=== PATIENT | male | born 1990 | race Caucasian/White ===

== ENCOUNTER 2024-10-14 11:15 | Emergency (ER) | payer BC, SELFPAY ==
--- NOTE | ~2024-10-14 | XR_ITS ---
EXAMINATION: XR CHEST 2 VIEWS HISTORY: cough, fever COMPARISON: There are no prior studies for comparison. FINDINGS: PA and lateral views of the chest are submitted. There are low lung volumes. There is linear subsegmental atelectasis at both lung bases. There is no pleural effusion, pneumothorax, or pulmonary vascular congestion. The heart is normal in size. There is dextroscoliosis of the lower thoracic and upper lumbar spine. XR/XR chest 2V IMPRESSION: Low lung volumes. Bibasilar subsegmental atelectasis. Electronically signed by: Nolberto Sanchez MD 10/14/2024 12:32 PM [facility]
[2024-10-14 12:05] VITALS: BP 119/90; PULSE 119; RESP 18; TEMP 38.5; O2SAT 98; BMI 29.9
--- NOTE | 2024-10-14 12:10 | ED_ITS ---
HPI - URI/Sore Throat General Chief Complaint: Upper Respiratory Symptoms Stated Complaint: High fever Time Seen by Provider: 10/14/24 18:06 Source: patient Mode of arrival: ambulatory Limitations: no limitations History of Present Illness ED Provider: Alise Salvador NP HPI Narrative: Patient is a 33-year-old transgender male to female patient who presents emergency department for evaluation 3 days with fever, nonproductive cough, nausea, fatigue, intermittent dizziness. Denies known sick contacts. Missed work today due to feeling unable to get out of bed. Denies associated chest pain or shortness of breath. No headache, vision changes, neck pain or neck stiffness. No numbness or tingling to the extremities. Related Data Allergies Allergy/AdvReac Type Severity Reaction Status Date / Time No Known Allergies Allergy Verified 10/14/24 12:10 Review of Systems Review of Systems: Yes all other systems are reviewed and are negative [facility] Past Medical History Attestation statement: The following information was validated with the patient. Source: old records reviewed Social History Social History Advance Directives: No Advance Directives Information Provided: No Do you have a plan to hurt others: No Plan Physical Exam Vital Signs: Vital Signs: Last Vital Signs Temp 99.1 F 10/14/24 22:22 Pulse 91 10/14/24 22:22 Resp 18 10/14/24 22:22 BP 101/59 L 10/14/24 22:22 Pulse Ox 95 10/14/24 22:22 O2 Del Method Room Air 10/14/24 22:22 BMI result Body Mass Index 29.9 Appearance: Alert.?Oriented to person, place and time. No acute distress.?Normal affect. Eyes: Pupils equal, round and reactive to light.? ENT: TM normal bilaterally. Pharynx normal.?? Neck: Normal inspection.? Neck supple.??No cervical adenopathy CVS: Heart sounds normal. tachycardia? Pulses normal.?? Respiratory: No respiratory distress.? Lung sounds clear to auscultation bilaterally?? Abdomen: Soft and non-tender. Normoactive bowel sounds. Skin: Skin warm and dry.? Normal skin color.? ? Extremities: No lower extremity edema.? Neuro: Moves all extremities spontaneously. Sensation intact bilaterally. No motor deficits. Ambulates with normal steady gait. Course Course Course Narrative: This is a Rapid Medical Exam performed in triage by Shayy Chery PA-C. Full HPI, ROS and PE to be performed by primary ED provider. 43-year-old transgender MTF presenting to the ED c/o URI symptoms with fever, last took Tylenol around 07:00. Reports associated cough, nausea. PE: Febrile, tachycardic, lungs CTA Plan: EKG, x-ray, viral testing Medications Administered Discontinued Medications Generic Name Dose Route Start Last Admin Trade Name Freq PRN Reason Stop Dose Admin Acetaminophen 975 mg 10/14/24 18:57 10/14/24 19:15 Acetaminophen 325 Mg Tablet PO 10/14/24 18:58 975 mg ONCE ONE Administration Ibuprofen 600 mg 10/14/24 12:12 10/14/24 18:12 Ibuprofen 600 Mg Tablet PO 10/14/24 12:13 600 mg ONCE ONE Administration Medical Decision Making Medical Decision Making MDM Narrative: Patient is a 53 old patient presenting for evaluation of viral type symptoms as per HPI. Appears fatigued, tachycardic and febrile, received ibuprofen in the waiting room, provide additionally acetaminophen. Influenza A positive; COVID- 19/RSV/group a strep negative. CXR without evidence of consolidation or infiltrate to suggest pneumonia. Speaking clear full sentences, ambulatory with steady gait. Discussed conservative treatment including rest, hydration, Tylenol/ibuprofen as needed for fever and body aches, saline nasal spray, humidifier, [id number]-[id number] cold medication. Given duration since onset would not be a candidate for Tamiflu at this time. Advised to follow-up with primary care provider as needed, discussed reasons to return back to the emergency department. All questions were answered. Patient discharged home in stable condition. Provided with a return to work/school note. Differential Diagnosis Differential Diagnoses: The differential diagnosis associated with the presentation includes ( See narrative above) Admission/Observation Consideration of admission/observation: Escalation of care including admission/observation considered ( see narrative above) Lab Data MDM Lab Attestation statement: I reviewed the patient's lab results. ( see narrative above) Labs: Lab Results 10/14/24 Range/Units 12:32 Influenza Type A (PCR) POSITIVE A (Negative) Influenza Type B (PCR) NEGATIVE (Negative) RSV RNA Qual (PCR) NEGATIVE (Negative) SARS-CoV-2 RNA (RT-PCR) NEGATIVE (Negative) S. pyogenes GrpA CECIL Negative (Negative) Independent Interpretation I performed an independent interpretation of an: EKG (EKG revealing sinus tachycardia with ventricular rate of 112 QTC 434, no ST elevation) and Plain X- Ray (See narrative above) Radiology Impression Discussion of test interpretation with radiology: I have reviewed the radiologist's reading. Radiologist Impression: XR/XR chest 2V IMPRESSION: Low lung volumes. Bibasilar subsegmental atelectasis. External Record Review External record reviewed: Outpatient record Prescription Management I considered prescription management with: Pain Medication ( acetaminophen/ibuprofen) and Antiviral (See narrative above) Discharge Plan Discharge Clinical Impression: Influenza Patient Disposition: Home, Self-Care Instructions: Influenza (ED) Additional Instructions: Be sure to rest, stay well hydrated drinking plenty of fluids, eat small frequent meals. Tylenol/ibuprofen can be used as needed for fever/pain. Cgrw-[id number]-lptxfmc cold medications may be helpful as well for symptoms. Saline nasal spray, humidifier may be helpful for nasal congestion. You may return to the emergency department with any new or worsening symptoms or concerns. Follow-up with your primary care provider as needed. Should remain out of school/ work until symptoms have resolved and have been without a fever for 24 hours without the use of Tylenol or ibuprofen. Referrals: Physician,Unknown J [Primary Care Provider] - Stand Alone Forms: Work/School Release Interventions: ED Discharge Assessment Last Done: 10/14/24 22:22 Discharge Date/Time: 10/14/24 22:25 Print Language: [place]
--- NOTE | 2024-10-14 12:12 | ECG_ITS ---
Test Reason : CP Blood Pressure : */* mmHG Vent. Rate : 112 BPM Atrial Rate : 112 BPM P-R Int : 176 ms QRS Dur : 82 ms QT Int : 318 ms P-R-T Axes : 20 84 8 degrees QTcB Int : 434 ms Sinus tachycardia Otherwise normal ECG No previous ECGs available Referred By: Shayy Chery Electronically Signed By: Thiago Platt
[2024-10-14 12:47] LABS: IDNOW Serial# 08D9AD1C; Strep A Nucleic Acid Negative (Negative)
[2024-10-14 13:25] LABS: Influenza A PCR POSITIVE (Negative); Influenza B PCR NEGATIVE (Negative); Resp Syncy Virus RNA Qual PCR NEGATIVE (Negative); SARS COV2 PCR INHOUSE NEGATIVE (Negative)
[2024-10-14 18:05] VITALS: BP 127/81; PULSE 112; RESP 18; TEMP 38.6; O2SAT 98
[2024-10-14] MEDS: Ibuprofen 600 MG TABLET PO (18:12)
[2024-10-14] MEDS: Acetaminophen 325 MG TABLET 975 MG PO (19:15)
[2024-10-14 21:17] VITALS: BP 101/59; PULSE 91; RESP 18; TEMP 37.3; O2SAT 95
[2024-10-14 22:22] VITALS: BP 101/59; PULSE 91; RESP 18; TEMP 37.3; O2SAT 95
== END 2024-10-14 22:25 | disposition home or self-care (01) ==
PROVIDERS: Physician Assistant; Emergency Provider Emergency Medicine Emergency Medical Services
DX: J10.1 Influenza due to other identified influenza virus with other respiratory manifestations (principal); R50.9 Fever, unspecified; R05.9 Cough, unspecified; R11.0 Nausea; R42 Dizziness and giddiness; Z03.818 Encounter for observation for suspected exposure to other biological agents ruled out
CPT/HCPCS: 0241U; 71046; 87651; 93005; 99283; 99284

== ENCOUNTER → 2024-10-14 12:12 | Outpatient (BNV) | payer SELFPAY | PROVIDERS: Visit Provider Internal Medicine Cardiovascular Disease | DX: R00.0 Tachycardia, unspecified (principal) | CPT/HCPCS: 93010 ==

== ENCOUNTER → 2024-10-14 12:12 | Outpatient (BNV) | payer SELFPAY | PROVIDERS: Visit Provider Radiology Diagnostic Radiology | DX: J98.11 Atelectasis (principal) | CPT/HCPCS: 71046 ==